=== PATIENT | female | born 1940 | race Caucasian/White ===

== ENCOUNTER → 2020-10-02 09:32 | Outpatient (CLI) | payer OTHER, SELFPAY ==
[2020-10-02 12:16] LABS: COVID19 -Nasal RAPID Negative (Negative)
== END ==
PROVIDERS: Visit Provider Physician Assistant
DX: Z20.822 Contact with and (suspected) exposure to COVID-19 (principal)
CPT/HCPCS: 87635

== ENCOUNTER 2020-10-04 09:17 | Day surgery (SDC) | payer OTHER, SELFPAY ==
--- NOTE | 2020-10-03 18:31 | PM.PREOP ---
Pre-operative Note COVID-19 COVID-19 status: Negative Interval Note History & Physical reviewed/Exam performed by Physician: Yes Changes to H&P: No
--- NOTE | 2020-10-04 08:13 | PM.OP.1 ---
Operative Date/Time/Diagnoses Date of procedure: 10/04/20 Time of procedure: 10:45 Procedure & Clinicians Procedure: Preoperative diagnoses: 1. Right nuclear sclerotic and cortical cataract. 2. Arthritis. 3. Scoliosis. Postoperative diagnoses: 1. Cataract removed by phacoemulsification with placement of posterior chamber intraocular lens. Capsular dye used to enhance visibility and safety. Procedure: Phacoemulsification with posterior chamber intraocular lens implant Surgeon: Nadeen Serrano MD Complications: None Specimen: None Implant: [id number] Blood loss: None Anesthesia: Retrobulbar with monitored standby Description of procedure: Patient presents with a complaint of decreased vision due to cataract which is affecting activities of daily living both distance and. The patient wants surgery to improve vision. She chooses a distance target. She understands the extra risk of surgery during COVID-19 epidemic and wishes to proceed. She has tested negative for active virus. The patient was taken to the operating room and given IV sedation. A retrobulbar block consisting of 6 cc of 2% xylocaine without epinephrine mixed half and half with 0.5% Marcaine with 1 cc of hyaluronidase added is placed between the medial and lateral 1/3 of the inferior orbital rim. The eye is manually massaged for 30 sec, prepped using Betadine solution, and draped in the usual sterile fashion. Temporal approach was made, a 1 mm side-port incision was made 90? from the proposed clear corneal incision position. Phenylephrine 1.5% mixed with 1% xylocaine 0.2 cc was placed into the anterior chamber. Due to cortical plaque through the central visual axis an air bubble was placed followed by Visudyne capsular dye into the anterior chamber. The air bubble and excess dye was then removed with BSS. Viscoat followed by Healon was then placed. A 2.6 mm clear incision with a 2.6 mm blade was placed. A 360 degree capsulorrhexis style capsulotomy was then performed with a cystitome needle on a Healon greatly aided by the capsular dye. Hydrodelineation and hydrodissection were performed. The phacoemulsification unit is introduced, and sculpting notice used to groove the central lens. It is then removed in chopping mode. Epi nucleus is removed with epinuclear mode and irrigation aspiration was used to remove the peripheral cortex. The posterior capsule is polished. The intraocular lens is selected, inspected, power confirmed, and placed in the posterior chamber. The wound was stromally hydrated and tested for leaks, there was none and it was left sutureless. Vigamox 0.1 cc was placed into the anterior chamber. Kenalog 0.2 cc was placed in the superior subconjunctival space. A drop of antibiotic and was placed and the eye was patched and shielded. The patient was stable and returned to the recovery room in excellent condition. Dictated by: Nadeen Serrano MD Copy to: [facility] Same procedure as scheduled: Yes
[2020-10-04] MEDS: PROPARACAINE 0.5% OPHTH SOL 2 DROPS EYE-OP (09:31)
[2020-10-04] MEDS: CATARACT EYE COMPOUND (10 DROPS/SYRINGE) 3 DROPS EYE-OP (09:31)
[2020-10-04 09:43] VITALS: BP 157/80; PULSE 76; RESP 16; TEMP 37.1; O2SAT 96; BMI 23.9
[2020-10-04] MEDS: BALANCED SALT IRRIG SOLN NO.2 500 ML, EPINEPHrine 1 MG IRR (11:21)
[2020-10-04] MEDS: TRYPAN BLUE 0.5 ML SYRINGE INJ (11:22)
[2020-10-04] MEDS: HYALURONATE SODIUM 10 MG/ML SYRINGE INJ (11:22)
[2020-10-04] MEDS: MOXIFLOXACIN INJ 5 MG/ML VIAL EYE-OP (11:23)
[2020-10-04] MEDS: PHENYLEPHRINE/LIDOCAINE VIAL (OR) 0.2 ML EYE-OP (11:23)
[2020-10-04] MEDS: TRIAMCINOLONE 50 MG/5 ML VIAL INJ (11:23)
[2020-10-04] MEDS: ERYTHROMYCIN OPHTH 1 GM OINT 1 APPLIC EYE-RIGHT (11:24)
[2020-10-04] MEDS: CHONDROIDTIN/SOD HYALURONATE 1.05 ML SYRINGE INTRAOCULA (11:24)
[2020-10-04] MEDS: LIDOCAINE 2% 4 ML, BUPIVACAINE 0.5% (PF) 4 ML, HYALURONIDASE 150 UNIT INJ (11:25)
[2020-10-04 12:00] VITALS: BP 153/75; PULSE 60; RESP 16; TEMP 36.7; O2SAT 96
--- NOTE | 2020-10-04 12:02 | SUR.PHASEII ---
stable phase 2, dressed and left when ready.
== END 2020-10-04 12:10 | disposition home or self-care (01) ==
LOC: OR 09:22
PROVIDERS: PCP Nurse Practitioner; Referring Provider Ophthalmology; Visit Provider Ophthalmology
PROC: (CPT 66984; principal; 2020-10-04 10:45)
DX: H25.811 Combined forms of age-related cataract, right eye (principal)
CPT/HCPCS: 66984; J0171; J2250; J2704; J3301; J3470

== ENCOUNTER → 2020-10-16 10:13 | Outpatient (CLI) | payer OTHER, SELFPAY ==
[2020-10-16 11:31] LABS: COVID19 -Nasal RAPID Negative (Negative)
== END ==
PROVIDERS: PCP Nurse Practitioner; Visit Provider Physician Assistant
DX: Z20.822 Contact with and (suspected) exposure to COVID-19 (principal)
CPT/HCPCS: 87635

== ENCOUNTER 2020-10-18 10:41 | Day surgery (SDC) | payer OTHER, SELFPAY ==
--- NOTE | 2020-10-17 18:45 | PM.PREOP ---
Pre-operative Note COVID-19 COVID-19 status: Negative Interval Note History & Physical reviewed/Exam performed by Physician: Yes Changes to H&P: No
--- NOTE | 2020-10-17 18:46 | PM.OP.1 ---
Operative Date/Time/Diagnoses Date of procedure: 10/18/20 Time of procedure: 11:45 Procedure & Clinicians Procedure: Preoperative diagnoses: 1. Complex Left cortical and Nuclear sclerotic cataract with use of capsular dye. 2. Astigmatism which is to be corrected with a toric intraocular lens implant. 3. Hearing loss 4. Arthritis Postoperative diagnoses: 1. Cataract removal with phacoemulsification with toric posterior chamber intraocular lens implant placed. Procedure: Phacoemulsification with posterior chamber toric intraocular lens implant. Surgeon: Nadeen Serrano MD Complications: None Specimen: None Implant: [id number] [place] 072. Blood loss: None Anesthesia: Retrobulbar with monitored standby Description of procedure: Patient presents with a complaint of decreased vision due to cataract which is affecting activities of daily living. The patient wants surgery to improve vision and astigmatism. She understands the extra risk of surgery during the - pandemic and wishes to proceed. She has tested active iris negative to the procedure. There are cortical spokes through the visual axis and capsular dye will be used to help reduce risk due to poor visibility. The patient was taken to the operating room and proparacaine drops placed. Indelible ink carlson were placed at the 90 and 180 degree meridian. The patient was placed on the operating room table and given IV sedation. A retrobulbar block insert consisting of 6 cc of 2% xylocaine without epinephrine mixed half and half with 0.5% Marcaine with 1 cc of hyaluronidase added is placed between the medial and lateral 1/3 of the inferior orbital rim. The eye is manually massaged for 30 sec, prepped using Betadine solution, and draped in the usual sterile fashion. Temporal approach was made, a 1 mm side-port incision was made 90? from the proposed corneal wound. Phenylephrine 1.5% mixed with 1% xylocaine 0.2 cc was placed into the anterior chamber. An air bubble was placed followed by isudyne capsular dye. Viscoat followed by Healon was then placed. A 2.6 mm clear incision with a 2.6 mm blade was placed at the 170 degree meridian. A 360 degree capsulorrhexis style capsulotomy was then performed with a cystitome needle on a Healon aided by the capsular dye. Hydrodelineation and hydrodissection were performed. The phacoemulsification unit is introduced, and sculpting used to groove the central lens. It is then removed in chopping mode. Epi nucleus is removed with epinuclear mode and irrigation aspiration was used to remove the peripheral cortex. The posterior capsule is polished. The intraocular lens is selected, inspected, power confirmed, and placed in the posterior chamber at the desired meridian at 72?. The pupil was not constricted. The wound was stromally hydrated and tested for leaks, there was none and it was left sutureless. Vigamox 0.1 cc was placed into the anterior chamber. Kenalog 0.2 cc was placed in the superior subconjunctival space. A drop of antibiotic and was placed and the eye was patched and shielded. The patient was stable and returned to the recovery room in excellent condition. Dictated by: Nadeen Serrano MD Copy to: [facility] Same procedure as scheduled: Yes
[2020-10-18 11:00] VITALS: BP 165/87; PULSE 78; RESP 16; TEMP 36.8; O2SAT 97
[2020-10-18] MEDS: PROPARACAINE 0.5% OPHTH SOL 2 DROPS EYE-OP (11:00)
[2020-10-18] MEDS: CATARACT EYE COMPOUND (10 DROPS/SYRINGE) 3 DROPS EYE-OP (11:06)
[2020-10-18 11:10] VITALS: BMI 22.3
[2020-10-18] MEDS: ERYTHROMYCIN OPHTH 1 GM OINT 1 APPLIC EYE-LEFT (12:27)
[2020-10-18] MEDS: HYALURONATE SODIUM 10 MG/ML SYRINGE INJ (12:28)
[2020-10-18] MEDS: CHONDROIDTIN/SOD HYALURONATE 1.05 ML SYRINGE INTRAOCULA (12:28)
[2020-10-18] MEDS: MOXIFLOXACIN INJ 5 MG/ML VIAL EYE-OP (12:28)
[2020-10-18] MEDS: PHENYLEPHRINE/LIDOCAINE VIAL (OR) 0.2 ML EYE-OP (12:29)
[2020-10-18] MEDS: TRIAMCINOLONE 50 MG/5 ML VIAL INJ (12:29)
[2020-10-18] MEDS: TRYPAN BLUE 0.5 ML SYRINGE INJ (12:29)
[2020-10-18] MEDS: BALANCED SALT IRRIG SOLN NO.2 500 ML, EPINEPHrine 1 MG IRR (12:30)
[2020-10-18] MEDS: LIDOCAINE 2% 4 ML, BUPIVACAINE 0.5% (PF) 4 ML, HYALURONIDASE 150 UNIT INJ (12:30)
--- NOTE | 2020-10-18 12:35 | SUR.OPER ---
Supine on eye stretcher, head on extension cradle secured with tape. Arms tucked at sides with blanket. Pillow under knees.
[2020-10-18 13:04] VITALS: BP 151/81; PULSE 59; RESP 12; TEMP 36.7; O2SAT 97
[2020-10-18 13:22] VITALS: BP 146/72; PULSE 67; RESP 16; O2SAT 97
[2020-10-18 13:32] VITALS: TEMP 37.1
--- NOTE | 2020-10-18 13:39 | SUR.PHASEII ---
pt from OR in WC with Anesth/Rn. Checked in by Swati Vieira RN. Pt awake alert, taking coffee after tolerating juice. Denies pain. Pt states she feels like she can still blink her eye with current dressing. Dressing Re-taped and pt stated it felt more secure and eye was now closed. DC to home with friend.
== END 2020-10-18 13:35 | disposition home or self-care (01) ==
LOC: OR 10:45
PROVIDERS: PCP Nurse Practitioner; Referring Provider Ophthalmology; Visit Provider Ophthalmology
PROC: (CPT 66982; principal; 2020-10-18 11:45)
DX: H25.812 Combined forms of age-related cataract, left eye (principal); H52.202 Unspecified astigmatism, left eye
CPT/HCPCS: 66982; J0171; J2704; J3301; J3470; V2787